=== PATIENT | male | born 1995 | race Two or more races ===

== ENCOUNTER → 2017-07-21 | Outpatient (CLI) | payer OTHER | END | disposition home or self-care (01) | LOC: RAD 09:33 | PROVIDERS: ATTEND Family Medicine Adult Medicine | DX: I86.1 Scrotal varices (principal); H57.9 Unspecified disorder of eye and adnexa; L70.9 Acne, unspecified; N44.8 Other noninflammatory disorders of the testis | CPT/HCPCS: 76870 ==